=== PATIENT | male | born 1935 | race Caucasian/White ===

== ENCOUNTER 2018-02-27 03:45 | Inpatient (IN) ==
--- NOTE | 2018-02-27 04:00 | Emergency Department Note ---
Disposition Clinical Impression: Congestive heart failure, Community acquired pneumonia Disposition: Admitted As Inpatient Condition: Fair SOB HPI - General Stated Complaint: chest pain Time Seen by Provider: 02/27/18 03:45 Source: patient, EMS Mode of arrival: EMS Limitations: physical limitation (due to respiratory difficulties) Nursing Notes Reviewed: Yes Vital Signs Reviewed: Yes - History of Present Illness 82-year-old male who presents emergency room his having shortness of breath and chest pain patient states it has been going on for a couple of days by the ER physician who diagnosed him with bronchitis placed him on Levaquin since he c ould not take his GI upset so they switched him to another antibiotic he thinks his amoxicillin and then he says he is just not been getting any better he denies any blurred vision double vision loss vision diarrhea melena hematochezia hematemesis he says she breath cough congestion wheezing he has had no sputum production and feels that she could bring something up he denies rash or lesions other than the current case of shingles that he is dealing with he denies any numbness tingling he just has some weakness has not been able sleep because the shortness of breath all systems have been reviewed and otherwise negative Patient has chest pain worse with respiration eases with decreased movement patient states pains a 5 out of 10 non radiating Records reveal he was here on 1223 at that time was diagnosed with acute bronchitis patient has cardiac history is been resuscitated twice but states that this pain is worse with respiration and movement Pt Subjective Complaint: shortness of breath, chest pain Onset (ago): day(s) (3) Context: recent illness Severity: moderate, severe Consistency/Duration: constant, gradually worsening Improves with: bronchodilators Worsens with: exertion Known history of: COPD Associated symptoms: Reports: chest pain, pain with inspiration, cough, wheezing, sputum production. Denies: fever, orthopnea, lower extremity pain, polyuria, polydipsia, parasthesias, palpitations, hemoptysis, diaphoresis, nausea/vomiting, syncope, abdominal pain, sense of impending doom Treatment prior to arrival: oxygen, bronchodilator Cough present: Yes Cough Description: Involuntary, Bronchospastic Cough Frequency: Intermittent Sputum production: Yes Sputum Amount: Small Sputum Color: Cream - Related Data Home Medications Medication Instructions Recorded Confirmed RX: Aspirin 81 mg PO DAILY 08/08/15 02/27/18 RX: Folic Acid 1 mg PO DAILY 08/08/15 02/27/18 RX: Levothyroxine [Levothyroxine 137 mcg PO DAILY@0630 08/08/15 02/27/18 Sodium] RX: Metoprolol Succinate 200 mg PO DAILY 08/08/15 02/27/18 raNITIdine HCl [Zantac] 150 mg PO DAILY 08/08/15 02/27/18 Cetirizine HCl [Zyrtec] 10 mg PO DAILY 02/26/17 02/27/18 Cholecalciferol (Vitamin D3) 1,000 unit PO DAILY 02/26/17 02/27/18 [Vitamin D] RX: Docusate [Colace] 100 mg PO BID 02/26/17 02/27/18 RX: Hydralazine HCl 100 mg PO TID 02/26/17 02/27/18 RX: hydroCHLOROthiazide 25 mg PO DAILY 02/26/17 02/27/18 [Hydrochlorothiazide] amLODIPine [Norvasc] 5 mg PO DAILY 02/26/17 02/27/18 diazePAM [Valium] 5 mg PO TID 02/26/17 02/27/18 Gabapentin [Neurontin] 600 mg PO BID 11/01/17 02/27/18 Oxybutynin Chloride [Ditropan Xl] 15 mg PO DAILY 11/01/17 02/27/18 Psyllium Husk [Metamucil] 660 gm PO BID 11/01/17 02/27/18 Sennosides [Senna] 8.6 mg PO BID PRN 11/01/17 02/27/18 Timolol Maleate 0.5% 1 drop BOTH EYES DAILY 11/01/17 02/27/18 Previous Rx's Medication Instructions Recorded Amoxicillin/Clavulanate [Augmentin] 875 mg PO BIDWM #14 02/21/18 Promethazine/Dextromethorphan 5 ml PO Q4-6H PRN #120 syrup 02/21/18 [Promethazine-Dm Syrup] Allergies Allergy/AdvReac Type Severity Reaction Status Date / Time codeine Allergy See Verified 07/10/17 21:45 Comments sulfamethoxazole Allergy See Verified 07/10/17 21:45 [From Bactrim] Comments trimethoprim [From Bactrim] Allergy See Verified 08/08/15 12:18 Comments levofloxacin [From Levaquin] AdvReac Nausea Verified 02/27/18 05:11 All systems ED: reviewed and negative except as stated. Review of Systems: As Per HPI Constitutional: Reports: weakness. Denies: fever, chills Eyes: Denies: eye discharge ENT ED: Reports: congestion. Denies: ear pain, throat pain Cardiovascular: Reports: chest pain, dyspnea on exertion. Denies: palpitations Respiratory: Reports: cough, dyspnea, wheezes, sputum production Gastrointestinal: Denies: abdominal pain, nausea, vomiting Genitourinary: Denies: urgency, dysuria Musculoskeletal: Denies: back pain Integumentary: Denies: rash, abrasion Neurological: Denies: headache Psychiatric: Reports: anxiety Endocrine: Denies: fatigue Hematological/Lymphatic: Denies: easy bleeding Allergic/Immunologic: Denies: facial swelling Past Medical History - Past Medical History Attestation: Yes The following information was validated with the patient. Source: patient, old records reviewed, nursing notes reviewed Medical history: Reports: cancer, coronary artery disease, CVA, diabetes, hypertension, renal disease, other (ASCVD) Psychiatric history: Reports: no psych history - Social History Smoking Status: Former smoker Smokeless Tobacco Status: No Alcohol use: Reports: none Drug use: Reports: none Physical Exam - General Limitations: no limitations, physical limitation General appearance: alert, in no apparent distress, anxious - Head Head exam: atraumatic, normocephalic, normal inspection - Eye Eye exam: Present: normal appearance, PERRL, EOMI - ENT ENT exam: normal oropharynx, mucous membranes moist, TM's normal bilaterally, normal external ear exam, other (Wheezing appear to be more upper airway than it did to be down in the lung rocha) - Neck Neck exam: Present: normal inspection, full ROM, trachea midline - Chest Chest inspection: Present: normal inspection, symmetric chest wall rise - Respiratory Respiratory exam: Present: wheezes, accessory muscle use, prolonged expiratory phase - Cardiovascular Cardiovascular exam: Present: regular rate, normal rhythm, normal heart sounds - Abdominal Exam Abdominal exam: Present: soft, Non-Tender, normal bowel sounds. Absent: mass, pulsatile mass - Extremities Exam Extremities exam: Present: normal inspection, full ROM, normal capillary refill. Absent: tenderness, pedal edema, joint swelling, calf tenderness - Expanded Lower Extremity Exam Neurovascular/Tendon exam: Present: normal capillary refill, normal fine/light touch Gait: observed and normal - Back Exam Back exam: Present: normal inspection, full ROM. Absent: muscle spasm - Neurological Exam Neurological exam: Present: alert, oriented X3, CN II-XII intact, normal gait - Psychiatric Psychiatric exam: Present: normal affect, normal mood, anxious - Skin Skin exam: Present: warm, dry, intact, normal color, rash (Scab-like week lesions noted on the abdominal wall more prominent left than on the right) Course Course Narrative: Patient seen and examined patient was receiving aerosol treatment per started per EMS patient has multiple wheezing patient had chest x-ray labs are reviewed the EKG patient resting at this time patient received aspirin prior to arrival on arrival the patient is demanding to have some Valium Vital Signs Temperature 99.7 F H 02/27/18 03:57 Pulse Rate 50 02/27/18 03:57 Respiratory Rate 20 02/27/18 03:57 Blood Pressure 195/71 02/27/18 03:57 O2 Sat by Pulse Oximetry 99 02/27/18 03:57 Temperature 98.9 F 02/27/18 07:28 Pulse Rate 56 02/27/18 07:28 Respiratory Rate 14 02/27/18 07:28 Blood Pressure 146/65 02/27/18 07:28 O2 Sat by Pulse Oximetry 96 02/27/18 07:28 Oxygen Delivery Oxygen Delivery Nasal Cannula Shortness of Breath/Dyspnea - [facility] Narrative Medical decision making narrative: Chest pain STEMI non-STEMI - Differential Diagnosis Likely: acute exacerbation of chronic obstructive airways disease, congestive heart failure, pneumonia - Medical Records Medical records reviewed: Yes I reviewed the patient's medical records. - Lab Data Lab results reviewed: Yes I reviewed the patient's lab results. Result diagrams: 02/27/18 04:10 02/27/18 04:10 Lab Results 02/27/18 02/27/18 02/27/18 Range/Units 04:10 04:10 04:10 WBC 11.4 H D (4.3-11.1) K/mcL RBC 4.62 (4.19-5.50) M/mcL Hgb 14.2 (12.9-16.9) g/dL Hct 45.2 (37.5-50.1) % MCV 97.8 (83.0-100.0) fL MCH 30.7 (28.0-33.3) pg MCHC 31.4 L (31.6-35.5) g/dL RDW 14.6 H (11.5-14.5) % Plt Count 155 (140-400) K/mcL MPV 10.9 (9.4-12.4) fL Immature Gran % 0.4 (0-4) % Seg Neutrophils % 71.7 % Lymphocytes % 10.9 % Monocytes % 16.1 % Eosinophils % 0.5 % Basophils % 0.4 % Neutrophils # 8.2 (1.6-8.9) K/mcL Lymphocytes # 1.2 (0.6-4.6) K/mcL Monocytes # 1.8 H (0.0-1.3) K/mcL Eosinophils # 0.1 (0.0-0.6) K/mcL Basophils # 0.1 (0.0-0.2) K/mcL PT 12.7 H (9.4-12.1) Seconds INR 1.1 APTT 34.9 (26.0-36.0) Seconds Sodium 135 L (136-145) mEq/L Potassium 4.5 (3.5-5.1) mEq/L Chloride 98 (98-107) mEq/L Carbon Dioxide 32 H (23-29) mEq/L BUN 33 H (8-23) mg/dL Creatinine 1.93 H (0.70-1.30) mg/dL Est GFR ( Amer) 40 L (> 60) Est GFR (Non-Af Amer) 33 L (> 60) BUN/Creatinine Ratio 17 (6-26) Glucose 158 H (70-105) mg/dL Calculated Osmolality 291 (280-300) Lactic Acid (0.5-2.2) mmol/L Calcium 8.9 (8.6-10.3) mg/dL Phosphorus (2.7-4.5) mg/dL Magnesium (1.6-2.6) mg/dL Total Bilirubin 0.7 (0.3-1.0) mg/dL AST 16 (13-39) Units/L ALT 12 (7-52) Units/L Alkaline Phosphatase 35 (34-104) Units/L Troponin I < 0.03 (< 0.04) ng/mL B-Natriuretic Peptide (Less than 100) pg/mL Serum Total Protein 6.7 (6.4-8.9) g/dL Albumin 3.9 (3.5-5.7) g/dL Globulin 2.8 (2.4-3.5) g/dL Albumin/Globulin Ratio 1.4 (1.1-2.2) 02/27/18 02/27/18 02/27/18 Range/Units 04:10 04:10 04:10 WBC (4.3-11.1) K/mcL RBC (4.19-5.50) M/mcL Hgb (12.9-16.9) g/dL Hct (37.5-50.1) % MCV (83.0-100.0) fL MCH (28.0-33.3) pg MCHC (31.6-35.5) g/dL RDW (11.5-14.5) % Plt Count (140-400) K/mcL MPV (9.4-12.4) fL Immature Gran % (0-4) % Seg Neutrophils % % Lymphocytes % % Monocytes % % Eosinophils % % Basophils % % Neutrophils # (1.6-8.9) K/mcL Lymphocytes # (0.6-4.6) K/mcL Monocytes # (0.0-1.3) K/mcL Eosinophils # (0.0-0.6) K/mcL Basophils # (0.0-0.2) K/mcL PT (9.4-12.1) Seconds INR APTT (26.0-36.0) Seconds Sodium (136-145) mEq/L Potassium (3.5-5.1) mEq/L Chloride (98-107) mEq/L Carbon Dioxide (23-29) mEq/L BUN (8-23) mg/dL Creatinine (0.70-1.30) mg/dL Est GFR ( Amer) (> 60) Est GFR (Non-Af Amer) (> 60) BUN/Creatinine Ratio (6-26) Glucose (70-105) mg/dL Calculated Osmolality (280-300) Lactic Acid 1.4 (0.5-2.2) mmol/L Calcium (8.6-10.3) mg/dL Phosphorus 2.8 (2.7-4.5) mg/dL Magnesium 2.2 (1.6-2.6) mg/dL Total Bilirubin (0.3-1.0) mg/dL AST (13-39) Units/L ALT (7-52) Units/L Alkaline Phosphatase (34-104) Units/L Troponin I (< 0.04) ng/mL B-Natriuretic Peptide 626 H (Less than 100) pg/mL Serum Total Protein (6.4-8.9) g/dL Albumin (3.5-5.7) g/dL Globulin (2.4-3.5) g/dL Albumin/Globulin Ratio (1.1-2.2) - Radiology Data Radiology results reviewed: Yes I reviewed the patient's radiology results. - EKG Data EKG attestation: Yes I reviewed and interpreted this EKG. EKG results narrative: Paced rhythm rate 49 HI unable to calculate QRS 157 QT 444 axis -81 Critical Care Time Critical Care Time: No
[2018-02-27] MEDS ORDERED: Azithromycin 500 MG in D5% in Water 250 ML IVPB ONE (04:09)
[2018-02-27 04:17] LABS: Basophils # 0.1 K/mcL (0.0-0.2); Basophils % 0.4 %; Eosinophils # 0.1 K/mcL (0.0-0.6); Eosinophils % 0.5 %; Hematocrit 45.2 % (37.5-50.1); Hemoglobin 14.2 g/dL (12.9-16.9); Immature Granulocytes % 0.4 % (0-4); Lymphocytes # 1.2 K/mcL (0.6-4.6); Lymphocytes % 10.9 %; Mean Corpuscular HGB Conc 31.4 g/dL (31.6-35.5); Mean Corpuscular Hemoglobin 30.7 pg (28.0-33.3); Mean Corpuscular Volume 97.8 fL (83.0-100.0); Mean Platelet Volume 10.9 fL (9.4-12.4); Monocytes # 1.8 K/mcL (0.0-1.3); Monocytes % 16.1 %; Platelet Count 155 K/mcL (140-400); Red Blood Count 4.62 M/mcL (4.19-5.50); Red Cell Distribution Width 14.6 % (11.5-14.5); Segmented Neutrophils % 71.7 %
[2018-02-27] MEDS ORDERED: Bumetanide 1 MG/4 ML VIAL IVP ONE (04:19)
[2018-02-27 04:20] LABS: Neutrophils # 8.2 K/mcL (1.6-8.9)
[2018-02-27 04:22] LABS: INR 1.1; Prothrombin Time 12.7 Seconds (9.4-12.1)
[2018-02-27 04:25] LABS: Activated Partial Thrombo Time 34.9 Seconds (26.0-36.0)
[2018-02-27] MEDS ORDERED: diazePAM 5 MG TABLET PO ONE (04:26)
[2018-02-27 04:29] LABS: Alanine Aminotransferase 12 Units/L (7-52); Albumin 3.9 g/dL (3.5-5.7); Albumin/Globulin Ratio 1.4 (1.1-2.2); Alkaline Phosphatase 35 Units/L (34-104); Aspartate Amino Transferase 16 Units/L (13-39); BUN/Creatinine Ratio 17 (6-26); Bilirubin,Total 0.7 mg/dL (0.3-1.0); Blood Urea Nitrogen 33 mg/dL (8-23); Calcium 8.9 mg/dL (8.6-10.3); Carbon Dioxide 32 mEq/L (23-29); Chloride 98 mEq/L (98-107); Globulin 2.8 g/dL (2.4-3.5); Glucose 158 mg/dL (70-105); Osmolality,Calculated 291 (280-300); Potassium 4.5 mEq/L (3.5-5.1); Sodium 135 mEq/L (136-145); Total Protein 6.7 g/dL (6.4-8.9); eGFR For Non-African Americans 33 (> 60)
[2018-02-27 04:46] LABS: Troponin I < 0.03 ng/mL (< 0.04)
[2018-02-27 05:02] LABS: Magnesium 2.2 mg/dL (1.6-2.6); Phosphorous 2.8 mg/dL (2.7-4.5)
[2018-02-27] MEDS ORDERED: Sennosides 8.6 MG TABLET PO PRN (05:42)
[2018-02-27] MEDS ORDERED: Naloxone 0.4 MG/ML INJ IVP PRN (05:42)
[2018-02-27] MEDS ORDERED: PROMETHAZINE PO PRN (05:42)
[2018-02-27] MEDS ORDERED: DEXTROMETHORPHAN PO PRN (05:42)
[2018-02-27] MEDS ORDERED: [UNRECOGNIZED DRUG - OTHER] PO PRN (05:42)
[2018-02-27] MEDS: Famotidine 20 MG TABLET PO SCH (06:56)
[2018-02-27] MEDS: Bumetanide 1 MG/4 ML VIAL IVP SCH ×2 (08:40→17:02)
[2018-02-27] MEDS: Gabapentin 300 MG CAPSULE PO SCH ×3 (09:00→20:48)
[2018-02-27] MEDS: Aspirin 81 MG TAB.CHEW PO SCH (09:00)
[2018-02-27] MEDS: Metoprolol XL (24 HR) Succ 50 MG TAB.ER.24H PO SCH (09:00)
[2018-02-27] MEDS: hydroCHLOROthiazide 25 MG TABLET PO SCH (09:01)
[2018-02-27] MEDS: diazePAM 5 MG TABLET PO SCH ×3 (09:01→20:44)
[2018-02-27] MEDS: amLODIPine 5 MG TABLET PO SCH (09:01)
[2018-02-27] MEDS: Folic Acid 1 MG TABLET PO SCH (09:01)
[2018-02-27] MEDS: hydrALAZINE 25 MG TABLET PO SCH ×3 (09:01→20:43)
[2018-02-27] MEDS: Cholecalciferol (D-3) 1,000 UNIT TABLET PO SCH (09:01)
[2018-02-27] MEDS: Loratadine 10 MG TABLET PO SCH (09:01)
[2018-02-27] MEDS: Psyllium 1 PACKET POWD.PACK PO SCH ×2 (10:47→20:48)
--- NOTE | 2018-02-27 13:08 | Internal Med History&Physical ---
Date of Encounter: 02/27/18 Time of Encounter: 12:00 Assessment and Plan (1) Community acquired pneumonia Current visit: Yes Status: Acute Pending blood cultures, we will treat with Azithromycin and Rocephin. He will be treated with breathing treatments, as needed. He will continue supplemental oxygenation as needed and we will hopefully be able to wean this. I feel that his weakness is related to his illness but we will see how this goes and he may need placement in ECF or stay in a rehabilitation hospital as a swimming patient to increase his strengthening. This is because of his history of falls with illness. He apparently has a small complement of heart failure and I instructed him that this is probably because of his illness. We would watch and treat clinically. Qualifiers: Laterality: unspecified laterality Qualified Code(s): J18.9 - Pneumonia, unspecified organism (2) Congestive heart failure Current visit: Yes Status: Acute Mild related to above. We will try to have him seen as inpatient or outpatient by Dr. Marin, his collar feller, as available. He will be diuresed and monitored clinically with trying to avoid overdiuresis because of renal insufficiency. Qualifiers: Heart failure type: unspecified Heart failure chronicity: acute Qualified Code(s): I50.9 - Heart failure, unspecified (3) Chest wall pain Current visit: No Status: Acute This is in the center of diagnosis and will follow troponins, etc. (4) Gastroesophageal reflux disease Current visit: Yes Status: Acute He is on ranitidine for this and has a questionable ulcer history. Qualifiers: Esophagitis presence: esophagitis presence not specified Qualified Code(s): K21.9 - Gastro-esophageal reflux disease without esophagitis (5) Hypertension, essential Current visit: Yes Status: Acute Apparently stable. We will continue home regimen. (6) Solitary kidney Current visit: Yes Status: Acute He apparently has right solitary kidney after kidney cancer history. (7) Hypothyroidism Current visit: Yes Status: Acute We will check TSH given his diagnosis of heart failure. Qualifiers: Hypothyroidism type: unspecified Qualified Code(s): E03.9 - Hypothyroidism, unspecified (8) Chronic kidney disease Current visit: Yes Status: Acute Qualifiers: Chronic kidney disease stage: stage 3 (moderate) Qualified Code(s): N18.3 - Chronic kidney disease, stage 3 (moderate) (9) Cerebrovascular disease Current visit: Yes Status: Acute This is suspected critical, based on history. Will see if we can locate documentation on Thursday. May need vascular surgery referral. (10) Anxiety Current visit: Yes Status: Acute This is per his recent history and he is taking Valium 5 mg 3 times a day. I warned him about the addictive potential of this and the fact that we would like to have him address another type of medication with his psychiatrist, after he is improved, medically. (11) Constipation Current visit: Yes Status: Acute Per the patient, this is stable on senna and laxatives when necessary. Qualifiers: Constipation type: slow transit constipation Qualified Code(s): K59.01 - Slow transit constipation (12) Diabetes mellitus type 2, diet-controlled Current visit: Yes Status: Acute Per history, he is on diet controlled treatment only, no medication or insulin. He however has nephropathy and neuropathy. (13) Peripheral autonomic neuropathy due to diabetes mellitus Current visit: Yes Status: Acute Treated with Neurontin and apparently control. Primarily involving feet. Qualifiers: Diabetes mellitus type: type 2 Qualified Code(s): E11.43 - Type 2 diabetes mellitus with diabetic autonomic (poly)neuropathy Internal Medicine - H&P: HPI Chief complaint: Dyspnea Admitted From: Home History of present illness: Mr. Wagner is a 82 year old male with a 2 week history of not feeling well. He states that he has been progressively more short of breath and has had cough but no sputum production. The last couple of days, he has had yellow phlegm which is increasing in amount but still feels like he cannot get it out. He has occasional sweats and feels that he has been feverish but has not had chills. He has a sore throat the last couple of days but feels that he has been experiencing cough related to his sore throat. He has chest discomfort but on further questioning, the chest pain is always pleuritic and worse with cough. He has no history of coronary disease and has not had myocardial ischemia or heart attack, to his knowledge. He was treated for the cough with Levaquin but could not tolerate that and was then switched to another oral antibiotic. He states that the last couple of days before his transportation to the ER he was very weak. The weakness was progressive and caused him to fall a couple of times yesterday. He does not know of any focal deficits or speech changes, etc. He had no syncope or presyncope. Past medical history is significant for atrial pacemaker about 5 years ago after he was found to have an irregular heartbeat and after he " 8 times." He has no bypass or stent placement at that time. He was not treated for heart failure and has been in reasonable the good health since pacemaker placement. He is followed by Dr. Marin, his collar feller here, and has appointment with him on 03/03/2018. He had a recent rash on his right upper extremity which is now crusted. He was treated with antibiotic cream for same. This was felt to be shingles as it also involved his right upper abdomen and a few spots on his right forehead and sca lp. It was very itching and burned as well as had blisters. This was apparently about 3 weeks ago. He was a former smoker but has no known COPD. He stopped smoking over 20 years ago. He has a solitary right kidney and follows with lab animal technologist in [place] for same. He has bilateral carotid stenosis which is severe (of unknown severity) which was to have surgery by Dr. Crooks but this was delayed about 2 years ago for reasons not certain to patient. He has diabetes with neuropathy, nephropathy, but apparently not retinopathy. He was taken off his diabetic medications about 5 years ago and simply watches his diet for same. He has hypertension and takes several medications for same on a chronic, stable dose. He has remote peptic ulcer disease and was felt to have a recent "small ulcer" with switch from PPI to ranitidine. He has had several friends and family that have recently. For this reason, he sees a [place] psychiatrist by [facility] who has prescribed Valium for him. He takes no other antidepressants or anxiolytics. He has history of hypothyroidism and feels that he is stable on thyroid supplementation. Surgeries include pacemaker placement, left nephrectomy for cancer, prostate and left testicle removal for cancer and skin cancer in the form of melanoma on his right upper abdomen. He also had a laparoscopic cholecystectomy. All of these surgeries have been remote. He has a rare beer but does not otherwise drink alcohol or smoke marijuana or [address] drugs. He is and lives alone with the daughter that in [place] being his closest relative. He is a retired manager [employer]. Past Med Surg Social Fam HX - Past Medical History Medical history: cancer, coronary artery disease, CVA, diabetes, hypertension, renal disease, other (ASCVD) Additional medical history: Prostate cancer. Shingles Psychiatric history: no psych history, other (See history of present illness.) - Past Surgical History Additional surgical history: kidney removed, testicle removed - Social History Smoking Status: Former smoker Smokeless Tobacco Status: No Alcohol use: none Drug use: none - Family History Mother Living Status: Cause of : [place] Hx Family Cardiac Disorders: Yes Internal Medicine - H&P: Meds Aspirin 81 mg PO DAILY 08/08/15 [History] Folic Acid 1 mg PO DAILY 08/08/15 [History] Levothyroxine [Levothyroxine Sodium] 137 mcg PO DAILY@0630 08/08/15 [History] Metoprolol Succinate 200 mg PO DAILY 08/08/15 [History] raNITIdine HCl [Zantac] 150 mg PO DAILY 08/08/15 [History] Cetirizine HCl [Zyrtec] 10 mg PO DAILY 02/26/17 [History] Cholecalciferol (Vitamin D3) [Vitamin D] 1,000 unit PO DAILY 02/26/17 [History] Docusate [Colace] 100 mg PO BID 02/26/17 [History] Hydralazine HCl 100 mg PO TID 02/26/17 [History] amLODIPine [Norvasc] 5 mg PO DAILY 02/26/17 [History] diazePAM [Valium] 5 mg PO TID 02/26/17 [History] hydroCHLOROthiazide [Hydrochlorothiazide] 25 mg PO DAILY 02/26/17 [History] Gabapentin [Neurontin] 600 mg PO BID 11/01/17 [History] Oxybutynin Chloride [Ditropan Xl] 15 mg PO DAILY 11/01/17 [History] Psyllium Husk [Metamucil] 660 gm PO BID 11/01/17 [History] Sennosides [Senna] 8.6 mg PO BID PRN 11/01/17 [History] Timolol Maleate 0.5% 1 drop BOTH EYES DAILY 11/01/17 [History] Amoxicillin/Clavulanate [Augmentin] 875 mg PO BIDWM #14 02/21/18 [Rx] Promethazine/Dextromethorphan [Promethazine-Dm Syrup] 5 ml PO Q4-6H PRN #120 syrup 02/21/18 [Rx] Allergy/AdvReac Type Severity Reaction Status Date / Time codeine Allergy See Verified 07/10/17 21:45 Comments sulfamethoxazole Allergy See Verified 07/10/17 21:45 [From Bactrim] Comments trimethoprim [From Bactrim] Allergy See Verified 08/08/15 12:18 Comments levofloxacin [From Levaquin] AdvReac Nausea Verified 02/27/18 05:11 All Systems PM: The patient has glaucoma and he uses eyedrops "in a green bottle." He is not sure of the name. He has no cataracts. He has no teeth and his dentures are broken. He is mildly hard of hearing but does not wear hearing aids. Patient has no complaint of chest discomfort, dyspnea, orthopnea, breathing problems, palpitations, nausea or vomiting, constipation or diarrhea, other changes in bowel habits, heartburn, difficulty with urination, kidney problems or kidney stones, fevers chills or sweats, rash or itching, seizures, headache or lightheadedness, heat or cold intolerance, blood problems or anemia, or other new complaints, except as mentioned above. Review of systems is otherwise negative. - Constitutional Vitals: Temp Pulse Resp BP Pulse Ox 97.8 F 50 14 154/66 98 02/27/18 11:00 02/27/18 11:00 02/27/18 11:00 02/27/18 11:00 02/27/18 11:00 Exam: Examination: (Except as mentioned above): General: In no apparent distress, alert and oriented 3. Head: Atraumatic and normocephalic. Eyes: Extraocular muscles are intact, pupils equal round and reactive to light and accommodation. Sclerae anicteric. Ears: External ears are normal to inspection and hearing is grossly normal. Nose: Patent without lesion noted. Mouth: No intraoral lesions seen. Patient is edentulous. Neck: Supple with trachea midline. There is no thyromegaly or adenopathy and carotids are 2+ without bruit heard, but heart sounds are transmitted, bilaterally. Respiratory: No use of accessory muscles. Lungs are clear throughout. Normal airflow. Cardiovascular: Irregularly irregular with a low rate and no murmur appreciated. Abdomen: Bowel sounds are normal. No hepatosplenomegaly masses or tenderness. Obese and therefore difficult to palpate deeply. Extremities: No cyanosis clubbing or edema. Neurological: A and O 3. Cranial nerves II through XII are intact. No focal deficits and no abnormal movements or postures. Skin: Warm and non-diaphoretic with no lesions noted, with the exception as e xcoriations on right forearm extensor surface and minimal at distal right upper arm and a few lesions at right upper quadrant of the abdomen. Appropriate surgical scars.. Breasts, pelvic and rectal: Not examined. Internal Med - H&P Results - Labs CBC & Chem 7: 02/27/18 04:10 02/27/18 04:10 Labs: Short CBC 02/27/18 Range/Units 04:10 WBC 11.4 H D (4.3-11.1) K/mcL Hgb 14.2 (12.9-16.9) g/dL Hct 45.2 (37.5-50.1) % Plt Count 155 (140-400) K/mcL Neutrophils # 8.2 (1.6-8.9) K/mcL BMP 02/27/18 04:10 Sodium 135 L Potassium 4.5 Chloride 98 Carbon Dioxide 32 H BUN 33 H Creatinine 1.93 H Glucose 158 H Calcium 8.9 Cardiac Enzymes 02/27/18 02/27/18 Range/Units 04:10 10:10 Troponin I < 0.03 0.04 H* (< 0.04) ng/mL Liver Function 02/27/18 Range/Units 04:10 Total Bilirubin 0.7 (0.3-1.0) mg/dL AST 16 (13-39) Units/L ALT 12 (7-52) Units/L Alkaline Phosphatase 35 (34-104) Units/L Albumin 3.9 (3.5-5.7) g/dL - Impressions ITS Impressions Chest X-Ray 02/27/18 03:57 IMPRESSION: Pulmonary edema and left basilar atelectasis or pneumonia. The predominantly perihilar round densities are probably engorged central vessels. Pulmonary nodules are unlikely as these were not seen 6 days ago. D/ / Huang Holliday MD / Huang Holliday MD Interpreting Provider: Huang Holliday MD
[2018-02-27] MEDS: *HR* Enoxaparin 40 MG/0.4 ML SYRINGE SQ SCH (17:01)
[2018-02-27] MEDS: Albuterol 2.5 MG/3 ML NEBULIZER IH PRN (20:44)
[2018-02-28 04:51] LABS: Basophils % 0.3 %; Eosinophils % 0.1 %; Hematocrit 38.8 % (37.5-50.1); Hemoglobin 12.3 g/dL (12.9-16.9); Immature Granulocytes % 0.4 % (0-4); Lymphocytes # 1.1 K/mcL (0.6-4.6); Lymphocytes % 9.8 %; Mean Corpuscular HGB Conc 31.7 g/dL (31.6-35.5); Mean Corpuscular Hemoglobin 30.6 pg (28.0-33.3); Mean Corpuscular Volume 96.5 fL (83.0-100.0); Mean Platelet Volume 10.7 fL (9.4-12.4); Monocytes % 8.7 %; Neutrophils # 9.2 K/mcL (1.6-8.9); Platelet Count 162 K/mcL (140-400); Red Blood Count 4.02 M/mcL (4.19-5.50); Red Cell Distribution Width 14.3 % (11.5-14.5); Segmented Neutrophils % 80.7 %
[2018-02-28] MEDS: Famotidine 20 MG TABLET PO SCH (04:55)
[2018-02-28] MEDS: Azithromycin 500 MG in D5% in Water 250 ML IVPB SCH (04:55)
[2018-02-28] MEDS: Albuterol 2.5 MG/3 ML NEBULIZER IH PRN ×2 (04:55→09:27)
[2018-02-28 05:08] LABS: Calcium 8.4 mg/dL (8.6-10.3); Potassium 4.3 mEq/L (3.5-5.1)
[2018-02-28] MEDS: Psyllium 1 PACKET POWD.PACK PO SCH ×2 (07:34→20:28)
[2018-02-28] MEDS: Gabapentin 300 MG CAPSULE PO SCH ×2 (07:34→20:28)
[2018-02-28] MEDS: Folic Acid 1 MG TABLET PO SCH (08:24)
[2018-02-28] MEDS: diazePAM 5 MG TABLET PO SCH ×3 (08:25→20:27)
[2018-02-28] MEDS: Loratadine 10 MG TABLET PO SCH (08:25)
[2018-02-28] MEDS: amLODIPine 5 MG TABLET PO SCH (08:25)
[2018-02-28] MEDS: Cholecalciferol (D-3) 1,000 UNIT TABLET PO SCH (08:26)
[2018-02-28] MEDS: Aspirin 81 MG TAB.CHEW PO SCH (08:26)
[2018-02-28] MEDS: hydrALAZINE 25 MG TABLET PO SCH ×3 (08:27→20:27)
[2018-02-28] MEDS: hydroCHLOROthiazide 25 MG TABLET PO SCH (08:29)
[2018-02-28] MEDS: Metoprolol XL (24 HR) Succ 50 MG TAB.ER.24H PO SCH (08:32)
[2018-02-28] MEDS: Bumetanide 1 MG/4 ML VIAL IVP SCH ×2 (09:23→15:59)
[2018-02-28] MEDS: cefTRIAXone 1,000 MG in Water for inj. (sterile) 20 ML 10 ML IVP SCH (09:29)
--- NOTE | 2018-02-28 14:44 | Internal Med Progress Note ---
Date of Encounter: 02/28/18 Time of Encounter: 14:42 - Assessment and plan (1) Community acquired pneumonia Current Visit: Yes Status: Acute Assessment and plan: We will continue same antibiotics, azithromycin and Rocephin, will increase his breathing treatments to include DuoNeb. Expect he will need another day or 2 of IV antibiotics. Qualifiers: Laterality: unspecified laterality Qualified Code(s): J18.9 - Pneumonia, unspecified organism (2) Congestive heart failure Current Visit: Yes Status: Acute Assessment and plan: This is clinically stable but will recheck BMP tomorrow. Qualifiers: Heart failure type: unspecified Heart failure chronicity: acute Qualified Code(s): I50.9 - Heart failure, unspecified (3) Chest wall pain Current Visit: No Status: Acute Assessment and plan: I feel this is cough related and pleuritic associated with pneumonia. (4) Gastroesophageal reflux disease Current Visit: Yes Status: Acute Assessment and plan: Clinically stable. Qualifiers: Esophagitis presence: esophagitis presence not specified Qualified Code(s): K21.9 - Gastro-esophageal reflux disease without esophagitis (5) Hypertension, essential Current Visit: Yes Status: Acute Assessment and plan: Clinically stable. (6) Solitary kidney Current Visit: Yes Status: Acute Assessment and plan: We will recheck BMP, tomorrow. (7) Hypothyroidism Current Visit: Yes Status: Acute Assessment and plan: Clinically stable on current regimen. Qualifiers: Hypothyroidism type: unspecified Qualified Code(s): E03.9 - Hypothyroidism, unspecified (8) Chronic kidney disease Current Visit: Yes Status: Acute Qualifiers: Chronic kidney disease stage: stage 3 (moderate) Qualified Code(s): N18.3 - Chronic kidney disease, stage 3 (moderate) (9) Cerebrovascular disease Current Visit: Yes Status: Acute (10) Anxiety Current Visit: Yes Status: Acute (11) Constipation Current Visit: Yes Status: Acute Qualifiers: Constipation type: slow transit constipation Qualified Code(s): K59.01 - Slow transit constipation (12) Diabetes mellitus type 2, diet-controlled Current Visit: Yes Status: Acute Assessment and plan: Clinically stable. Will follow. 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 He still has tightness with exertion but notes this is related cough and dyspnea. He has no other complaints. He has low-grade fever. His cough is more frequent and he is producing more phlegm. Nursing notes that he sounds "tight." He has no other issues or complaints. Is concerned about his multiple visits coming up in the next few days as well as plans for care after this stay. I told him we would review with social service tomorrow. Patient has no complaint of chest discomfort, dyspnea, orthopnea, palpitations, nausea or vomiting, constipation or diarrhea, other changes in bowel habits, difficulty with urination, rash or itching, or other new complaints, except as mentioned above. Review of systems is otherwise negative. I discussed management of her care with nursing staff. - Constitutional Vitals: Temp Pulse Resp BP Pulse Ox 99.1 F 52 18 144/61 94 02/28/18 11:00 02/28/18 11:00 02/28/18 11:00 02/28/18 11:00 02/28/18 11:00 Exam: Examination: (Except as mentioned above): General: In no apparent distress. Alert and oriented 3. Nondiaphoretic. Patient is on oxygen at 2 L per nasal cannula. Head: Atraumatic and normocephalic. Respiratory: No use of accessory muscles. Lungs are remarkable for increased wheezing versus yesterday but seemingly has actual better airflow. No rales or signs of egophony, etc. Cardiovascular: Regular rate and rhythm without murmur appreciated. Abdomen: Bowel sounds are normal. No hepatosplenomegaly mass or tenderness appreciated. Obese and therefore difficult to palpate deeply.Patient is examined upright at bedside and this also limits exam. Extremities: No cyanosis clubbing or edema. Skin: Warm and non-diaphoretic with no new lesions noted. Internal Medicine: Result - Labs CBC & Chem 7: 02/28/18 04:45 02/28/18 04:45 Labs: Short CBC 02/28/18 Range/Units 04:45 WBC 11.4 H (4.3-11.1) K/mcL Hgb 12.3 L D (12.9-16.9) g/dL Hct 38.8 (37.5-50.1) % Plt Count 162 (140-400) K/mcL Neutrophils # 9.2 H (1.6-8.9) K/mcL BMP 02/28/18 04:45 Sodium 138 Potassium 4.3 Chloride 100 Carbon Dioxide 32 H BUN 40 H Creatinine 1.70 H Glucose 115 H Calcium 8.4 L Cardiac Enzymes 02/27/18 Range/Units 17:10 Troponin I 0.03 (< 0.04) ng/mL - ABG Interpretation ABG results: PT/INR, D-dimer PT 12.7 Seconds (9.4-12.1) H 02/27/18 04:10 Consult Discharge Plan - Plan Referrals: Stevo Mantilla, MECHANICAL HANDYMAN [Primary Care Provider] -
[2018-02-28] MEDS: Ipratropium/Albuterol Neb 3 ML IH SCH ×2 (15:55→20:28)
[2018-02-28] MEDS: *HR* Enoxaparin 40 MG/0.4 ML SYRINGE SQ SCH (15:58)
[2018-02-28] MEDS: Melatonin 3 MG TABLET PO SCH (20:27)
[2018-03-01] MEDS: Ipratropium/Albuterol Neb 3 ML IH SCH ×4 (03:34→22:00)
[2018-03-01] MEDS: Azithromycin 500 MG in D5% in Water 250 ML IVPB SCH (05:33)
[2018-03-01] MEDS: Famotidine 20 MG TABLET PO SCH (05:35)
[2018-03-01 06:08] LABS: Basophils % 0.4 %; Eosinophils # 0.1 K/mcL (0.0-0.6); Eosinophils % 0.8 %; Hematocrit 38.2 % (37.5-50.1); Hemoglobin 12.4 g/dL (12.9-16.9); Immature Granulocytes % 0.6 % (0-4); Lymphocytes # 1.2 K/mcL (0.6-4.6); Lymphocytes % 13.3 %; Mean Corpuscular HGB Conc 32.5 g/dL (31.6-35.5); Mean Corpuscular Volume 95.5 fL (83.0-100.0); Mean Platelet Volume 11.2 fL (9.4-12.4); Monocytes # 0.9 K/mcL (0.0-1.3); Monocytes % 9.9 %; Neutrophils # 6.8 K/mcL (1.6-8.9); Platelet Count 172 K/mcL (140-400); Red Cell Distribution Width 14.6 % (11.5-14.5)
[2018-03-01 06:27] LABS: Calcium 8.5 mg/dL (8.6-10.3); Potassium 3.9 mEq/L (3.5-5.1)
[2018-03-01] MEDS: Loratadine 10 MG TABLET PO SCH (08:57)
[2018-03-01] MEDS: Folic Acid 1 MG TABLET PO SCH (08:57)
[2018-03-01] MEDS: Aspirin 81 MG TAB.CHEW PO SCH (08:57)
[2018-03-01] MEDS: diazePAM 5 MG TABLET PO SCH ×3 (08:57→20:11)
[2018-03-01] MEDS: Bumetanide 1 MG/4 ML VIAL IVP SCH ×2 (08:58→19:12)
[2018-03-01] MEDS: amLODIPine 5 MG TABLET PO SCH (08:58)
[2018-03-01] MEDS: Cholecalciferol (D-3) 1,000 UNIT TABLET PO SCH (08:58)
[2018-03-01] MEDS: hydroCHLOROthiazide 25 MG TABLET PO SCH (08:58)
[2018-03-01] MEDS: Psyllium 1 PACKET POWD.PACK PO SCH ×2 (09:01→20:14)
[2018-03-01] MEDS: hydrALAZINE 25 MG TABLET PO SCH ×3 (09:01→20:13)
[2018-03-01] MEDS: cefTRIAXone 1,000 MG in Water for inj. (sterile) 20 ML 10 ML IVP SCH (09:02)
[2018-03-01] MEDS: Gabapentin 300 MG CAPSULE PO SCH ×2 (09:02→20:11)
[2018-03-01] MEDS: Metoprolol XL (24 HR) Succ 50 MG TAB.ER.24H PO SCH (09:03)
--- NOTE | 2018-03-01 13:40 | Internal Med Progress Note ---
Date of Encounter: 03/01/18 Time of Encounter: 11:10 - Assessment and plan (1) Community acquired pneumonia Current Visit: Yes Status: Acute Assessment and plan: We will continue IV antibiotics and breathing treatments for another day, at least. We will arrange for home going nursing care and follow-up, as he stabilizes. Qualifiers: Laterality: unspecified laterality Qualified Code(s): J18.9 - Pneumonia, unspecified organism (2) Congestive heart failure Current Visit: Yes Status: Acute Assessment and plan: He is due for cardiology follow-up today or Thursday but this is not possible as his doweler is not here, today. Qualifiers: Heart failure type: unspecified Heart failure chronicity: acute Qualified Code(s): I50.9 - Heart failure, unspecified (3) Chest wall pain Current Visit: No Status: Inactive Assessment and plan: Improving. Seems to have been related to his cough. (4) Gastroesophageal reflux disease Current Visit: Yes Status: Acute Assessment and plan: Clinically stable without recent symptoms. Qualifiers: Esophagitis presence: esophagitis presence not specified Qualified Code(s): K21.9 - Gastro-esophageal reflux disease without esophagitis (5) Hypertension, essential Current Visit: Yes Status: Acute Assessment and plan: Clinically stable and will follow. (6) Solitary kidney Current Visit: Yes Status: Acute Assessment and plan: He is tach of follow-up BMP today. (7) Hypothyroidism Current Visit: Yes Status: Acute Qualifiers: Hypothyroidism type: unspecified Qualified Code(s): E03.9 - Hypothyroidism, unspecified (8) Chronic kidney disease Current Visit: Yes Status: Acute Qualifiers: Chronic kidney disease stage: stage 3 (moderate) Qualified Code(s): N18.3 - Chronic kidney disease, stage 3 (moderate) (9) Cerebrovascular disease Current Visit: Yes Status: Acute (10) Anxiety Current Visit: Yes Status: Acute Assessment and plan: The patient seems to do well and slept well last night. For this reason, we will continue as planned. 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 He feels that his breathing is better. He is concerned about his ability to go home alone. He is relieved to hear that discharge planning will include home health, if possible. He is feeling relatively well today and is very pleased that he slept so well with melatonin, last night. Discussed with community mental health social worker and he is not a rehabilitation or swelling candidate, here. He will either need to go home or to a mcc. He has less chest pain and less cough. He has no other acute complaints except wonders what we can do with the rash on his forearm. I again tried to re-assure him that we would follow. We will also apply moisturizing lotion, only at this time. Patient has no complaint of chest discomfort, dyspnea, orthopnea, palpitations, nausea or vomiting, constipation or diarrhea, other changes in bowel habits, difficulty with urination, rash or itching, or other new complaints, except as mentioned above. Review of systems is otherwise negative. I discussed management of her care with nursing staff. - Constitutional Vitals: Temp Pulse Resp BP Pulse Ox 99.5 F 50 16 147/68 97 03/01/18 12:00 03/01/18 12:00 03/01/18 12:00 03/01/18 12:00 03/01/18 12:00 Exam: Examination: (Except as mentioned above): General: In no apparent distress. Alert and oriented 3. Nondiaphoretic. Head: Atraumatic and normocephalic. Respiratory: No use of accessory muscles. Lungs have minimal wheezing, diffusely.. Nearly normal airflow. Cardiovascular: Regular rate and rhythm without murmur appreciated. Abdomen: Bowel sounds are normal. No hepatosplenomegaly mass or tenderness appreciated. Obese and therefore difficult to palpate deeply. Extremities: No cyanosis clubbing or edema. Skin: Warm and non-diaphoretic with no new lesions noted. Internal Medicine: Result - Labs CBC & Chem 7: 03/01/18 05:45 03/01/18 05:45 Labs: Short CBC 03/01/18 Range/Units 05:45 WBC 9.0 (4.3-11.1) K/mcL Hgb 12.4 L (12.9-16.9) g/dL Hct 38.2 (37.5-50.1) % Plt Count 172 (140-400) K/mcL Neutrophils # 6.8 (1.6-8.9) K/mcL BMP 03/01/18 05:45 Sodium 137 Potassium 3.9 Chloride 96 L Carbon Dioxide 34 H BUN 37 H Creatinine 1.74 H Glucose 136 H Calcium 8.5 L - ABG Interpretation ABG results: PT/INR, D-dimer PT 12.7 Seconds (9.4-12.1) H 02/27/18 04:10 Consult Discharge Plan - Plan Referrals: Stevo Mantilla, UPHOLSTERY TECHNICIAN [Primary Care Provider] -
[2018-03-01] MEDS: *HR* Enoxaparin 40 MG/0.4 ML SYRINGE SQ SCH (19:11)
[2018-03-01] MEDS: Melatonin 3 MG TABLET PO SCH (20:11)
[2018-03-02] MEDS: Ipratropium/Albuterol Neb 3 ML IH SCH ×4 (04:27→22:22)
[2018-03-02] MEDS: Azithromycin 500 MG in D5% in Water 250 ML IVPB SCH (06:26)
[2018-03-02] MEDS: Famotidine 20 MG TABLET PO SCH (06:26)
[2018-03-02] MEDS: Cholecalciferol (D-3) 1,000 UNIT TABLET PO SCH (09:38)
[2018-03-02] MEDS: amLODIPine 5 MG TABLET PO SCH (09:38)
[2018-03-02] MEDS: Folic Acid 1 MG TABLET PO SCH (09:39)
[2018-03-02] MEDS: Psyllium 1 PACKET POWD.PACK PO SCH ×2 (09:39→22:20)
[2018-03-02] MEDS: Gabapentin 300 MG CAPSULE PO SCH ×2 (09:39→22:20)
[2018-03-02] MEDS: Aspirin 81 MG TAB.CHEW PO SCH (09:39)
[2018-03-02] MEDS: Loratadine 10 MG TABLET PO SCH (09:39)
[2018-03-02] MEDS: hydrALAZINE 25 MG TABLET PO SCH ×3 (09:39→22:18)
[2018-03-02] MEDS: hydroCHLOROthiazide 25 MG TABLET PO SCH (09:39)
[2018-03-02] MEDS: Bumetanide 1 MG/4 ML VIAL IVP SCH ×2 (09:40→18:28)
[2018-03-02] MEDS: Metoprolol XL (24 HR) Succ 50 MG TAB.ER.24H PO SCH (09:41)
[2018-03-02] MEDS: cefTRIAXone 1,000 MG in Water for inj. (sterile) 20 ML 10 ML IVP SCH (09:41)
[2018-03-02] MEDS: diazePAM 5 MG TABLET PO SCH ×3 (09:42→22:20)
--- NOTE | 2018-03-02 11:52 | Internal Med Progress Note ---
Date of Encounter: 03/02/18 Time of Encounter: 11:52 - Assessment and plan (1) Community acquired pneumonia Current Visit: Yes Status: Acute Assessment and plan: He is improving and should be able to return home, tomorrow. We will evaluate and consider home health, follow-ups as planned. Qualifiers: Laterality: unspecified laterality Qualified Code(s): J18.9 - Pneumonia, unspecified organism (2) Congestive heart failure Current Visit: Yes Status: Acute Assessment and plan: Clinically stable without current signs or symptoms. Qualifiers: Heart failure type: unspecified Heart failure chronicity: acute Qualified Code(s): I50.9 - Heart failure, unspecified (3) Chest wall pain Current Visit: No Status: Inactive Assessment and plan: I feel this is related to his pneumonia so will follow. (4) Gastroesophageal reflux disease Current Visit: Yes Status: Acute Qualifiers: Esophagitis presence: esophagitis presence not specified Qualified Code(s): K21.9 - Gastro-esophageal reflux disease without esophagitis (5) Hypertension, essential Current Visit: Yes Status: Acute Assessment and plan: Clinically stable. (6) Solitary kidney Current Visit: Yes Status: Acute (7) Hypothyroidism Current Visit: Yes Status: Acute Qualifiers: Hypothyroidism type: unspecified Qualified Code(s): E03.9 - Hypothyroidism, unspecified (8) Chronic kidney disease Current Visit: Yes Status: Acute Qualifiers: Chronic kidney disease stage: stage 3 (moderate) Qualified Code(s): N18.3 - Chronic kidney disease, stage 3 (moderate) (9) Cerebrovascular disease Current Visit: Yes Status: Acute (10) Anxiety Current Visit: Yes Status: Acute Assessment and plan: I think this intermittently gives patient his symptoms or exacerbates his respiratory symptoms. (11) Constipation Current Visit: Yes Status: Acute Assessment and plan: Currently moving well. Qualifiers: Constipation type: slow transit constipation Qualified Code(s): K59.01 - Slow transit constipation (12) Diabetes mellitus type 2, diet-controlled Current Visit: Yes Status: Acute Assessment and plan: Clinically stable. 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 When he is able to cough phlegm out, he states that the discomfort resolves. He has no exertional or other component. His bowels moving well and we discussed discharge planning tomorrow or the next day. He has no other intermittent complaints. Patient has no complaint of chest discomfort, dyspnea, orthopnea, palpitations, nausea or vomiting, constipation or diarrhea, other changes in bowel habits, difficulty with urination, rash or itching, or other new complaints, except as mentioned above. Review of systems is otherwise negative. I discussed management of her care with nursing staff. - Constitutional Vitals: Temp Pulse Resp BP Pulse Ox 97.4 F L 50 16 156/78 94 03/02/18 08:39 03/02/18 08:39 03/02/18 08:39 03/02/18 08:39 03/02/18 08:39 Exam: Examination: (Except as mentioned above): General: In no apparent distress. Alert and oriented 3. Nondiaphoretic. Head: Atraumatic and normocephalic. Respiratory: No use of accessory muscles. Lungs are almost totally clear throughou with rare wheeze. . Normal airflow. Cardiovascular: Regular rate and rhythm without murmur appreciated. Abdomen: Bowel sounds are normal. No hepatosplenomegaly mass or tenderness appreciated. Obese and therefore difficult to palpate deeply. Patient is examined upright in chair and this also limits exam. Extremities: No cyanosis clubbing or edema. Skin: Warm and non-diaphoretic with no new lesions noted. Internal Medicine: Result - Labs CBC & Chem 7: 03/01/18 05:45 03/01/18 05:45 - ABG Interpretation ABG results: PT/INR, D-dimer PT 12.7 Seconds (9.4-12.1) H 02/27/18 04:10 Consult Discharge Plan - Plan Referrals: Stevo Mantilla, CHOPPER OPERATOR [Primary Care Provider] -
[2018-03-02] MEDS: *HR* Enoxaparin 40 MG/0.4 ML SYRINGE SQ SCH (14:58)
[2018-03-02] MEDS: Melatonin 3 MG TABLET PO SCH (22:20)
[2018-03-03] MEDS: Ipratropium/Albuterol Neb 3 ML IH SCH ×3 (04:41→11:08)
[2018-03-03] MEDS: Famotidine 20 MG TABLET PO SCH (05:50)
[2018-03-03 05:59] LABS: Basophils # 0.1 K/mcL (0.0-0.2); Basophils % 0.7 %; Eosinophils # 0.2 K/mcL (0.0-0.6); Eosinophils % 2.2 %; Hematocrit 43.1 % (37.5-50.1); Immature Granulocytes % 0.6 % (0-4); Lymphocytes # 1.4 K/mcL (0.6-4.6); Lymphocytes % 19.5 %; Mean Corpuscular HGB Conc 32.5 g/dL (31.6-35.5); Mean Corpuscular Hemoglobin 30.7 pg (28.0-33.3); Mean Corpuscular Volume 94.5 fL (83.0-100.0); Mean Platelet Volume 10.8 fL (9.4-12.4); Monocytes # 0.8 K/mcL (0.0-1.3); Monocytes % 11.1 %; Neutrophils # 4.7 K/mcL (1.6-8.9); Platelet Count 208 K/mcL (140-400); Red Blood Count 4.56 M/mcL (4.19-5.50); Red Cell Distribution Width 13.9 % (11.5-14.5); Segmented Neutrophils % 65.9 %
[2018-03-03 06:15] LABS: Calcium 9.6 mg/dL (8.6-10.3); Potassium 3.8 mEq/L (3.5-5.1)
[2018-03-03] MEDS ORDERED: Azithromycin 250 MG TABLET PO SCH (07:00)
--- NOTE | 2018-03-03 09:12 | Electrocardiograph Report ---
[place] [id number] Test Date: 2018-02-27 Pat Name: Srini Wagner Department: 2000 Room: 115 Gender: M Multiple Resaw Operator: KATELIN : 1935 Requested By: Liz Palma Order Number: [id number] Reading MD: Oskar Booth Measurements Intervals [place] Rate: 49 P: [place]: 0 QRS: -81 QRSD: 157 T: 87 QT: 444 QTc: 415 Interpretive Statements ELECTRONIC VENTRICULAR PACEMAKER ABNORMAL RHYTHM ECG Electronically Signed On 03-03-2018 9:10:17 EST by Oskar Booth
[2018-03-03] MEDS: Psyllium 1 PACKET POWD.PACK PO SCH (09:31)
[2018-03-03] MEDS: Gabapentin 300 MG CAPSULE PO SCH (09:31)
[2018-03-03] MEDS: Bumetanide 1 MG/4 ML VIAL IVP SCH (09:32)
[2018-03-03] MEDS: diazePAM 5 MG TABLET PO SCH ×2 (09:33→14:25)
[2018-03-03] MEDS: Folic Acid 1 MG TABLET PO SCH (09:33)
[2018-03-03] MEDS: Aspirin 81 MG TAB.CHEW PO SCH (09:33)
[2018-03-03] MEDS: hydrALAZINE 25 MG TABLET PO SCH ×2 (09:33→14:25)
[2018-03-03] MEDS: Cholecalciferol (D-3) 1,000 UNIT TABLET PO SCH (09:33)
[2018-03-03] MEDS: cefTRIAXone 1,000 MG in Water for inj. (sterile) 20 ML 10 ML IVP SCH (09:34)
[2018-03-03] MEDS: amLODIPine 5 MG TABLET PO SCH (09:34)
[2018-03-03] MEDS: hydroCHLOROthiazide 25 MG TABLET PO SCH (09:34)
[2018-03-03] MEDS: Loratadine 10 MG TABLET PO SCH (09:34)
[2018-03-03] MEDS: Metoprolol XL (24 HR) Succ 50 MG TAB.ER.24H PO SCH (09:34)
--- NOTE | 2018-03-03 11:20 | Discharge Summary ---
Orders not resulted at time of discharge: Pending orders 02/27/18 04:10 Culture,Blood [] Stat Date of Encounter: 03/03/18 Time of Encounter: 11:18 - Discharge Diagnosis (1) Community acquired pneumonia Priority: Primary Status: Acute Comments: Patient was admitted through the emergency department after presenting with complaints of increase in dyspnea over the past 2 weeks and increasing malaise. Patient has a long history of CHF, although he states that he has stopped smoking over 20 years ago. On admission patient had a productive cough with thick yellow sputum. Patient was treated with cortical steroids and started on antibiotic and has improved over the last several days. Patient currently remains afebrile. Patient states he continues to have moderate dyspnea on exertion. Afebrile. Patient will be discharged to home with prescription for Keflex over the next 7 days. Patient is to follow-up with his PCP in one week. Qualifiers: Laterality: unspecified laterality Qualified Code(s): J18.9 - Pneumonia, unspecified organism (2) Congestive heart failure Priority: Secondary Status: Chronic Comments: No acute issues during stay of facility. Patient continues to have complaints of dyspnea on exertion. Denies orthopnea. Patient was treated for pneumonia and will be discharged with prescription for Keflex. Patient is continue with current home medications and follow-up with PCP Qualifiers: Heart failure type: unspecified Heart failure chronicity: acute Qualified Code(s): I50.9 - Heart failure, unspecified (3) Hypertension, essential Priority: Secondary Status: Chronic Comments: Vital signs remained stable during his stay of facility. Patient is to be discharged home with orders to continue his home medications. Continued follow- up with PCP for further management (4) Chronic kidney disease Priority: Secondary Status: Chronic Comments: No acute issues. Patient most recent creatinine was 1.65. Patient to discharge home with current medications and follow-up with PCP for further management Qualifiers: Chronic kidney disease stage: stage 3 (moderate) Qualified Code(s): N18.3 - Chronic kidney disease, stage 3 (moderate) Hospital course: Mr. Wagner is a 82 year old male , who was admitted to this facility after presented to emergency department with complaints of increasing dyspnea and malaise over the past 2 weeks. Initial chest x-ray was suggestive of possible pneumonia and patient was admitted for IV therapy and further treatment with nebulized treatments. Patient progressed over the last several days and has remained afebrile. Patient had a cough upon admission currently shows no productive cough. Lungs are clear throughout upper rocha and diminished bases. Patient will be discharged to home with a prescription for Keflex to continue for the next 7 days and is recommended to follow up with his PCP on one week. Discharge discussed with: patient Time spent discussing smoking cessation with patient: 3 to 10 minutes - Time Spent with Patient Total time spent providing and/or coordinating discharge services: Less than 30 minutes - Discharge Medications Home Medications: Aspirin 81 mg PO DAILY 08/08/15 [History] Folic Acid 1 mg PO DAILY 08/08/15 [History] Levothyroxine [Levothyroxine Sodium] 137 mcg PO DAILY@0630 08/08/15 [History] Metoprolol Succinate 200 mg PO DAILY 08/08/15 [History] raNITIdine HCl [Zantac] 150 mg PO DAILY 08/08/15 [History] Cetirizine HCl [Zyrtec] 10 mg PO DAILY 02/26/17 [History] Cholecalciferol (Vitamin D3) [Vitamin D] 1,000 unit PO DAILY 02/26/17 [History] Docusate [Colace] 100 mg PO BID 02/26/17 [History] Hydralazine HCl 100 mg PO TID 02/26/17 [History] amLODIPine [Norvasc] 5 mg PO DAILY 02/26/17 [History] diazePAM [Valium] 5 mg PO TID 02/26/17 [History] hydroCHLOROthiazide [Hydrochlorothiazide] 25 mg PO DAILY 02/26/17 [History] Gabapentin [Neurontin] 600 mg PO BID 11/01/17 [History] Oxybutynin Chloride [Ditropan Xl] 15 mg PO DAILY 11/01/17 [History] Psyllium Husk [Metamucil] 660 gm PO BID 11/01/17 [History] Sennosides [Senna] 8.6 mg PO BID PRN 11/01/17 [History] Timolol Maleate 0.5% 1 drop BOTH EYES DAILY 11/01/17 [History] Amoxicillin/Clavulanate [Augmentin] 875 mg PO BIDWM #14 02/21/18 [Rx] Promethazine/Dextromethorphan [Promethazine-Dm Syrup] 5 ml PO Q4-6H PRN #120 syrup 02/21/18 [Rx] Allergies/Adverse Reactions: Allergy/AdvReac Type Severity Reaction Status Date / Time codeine Allergy See Verified 07/10/17 21:45 Comments sulfamethoxazole Allergy See Verified 07/10/17 21:45 [From Bactrim] Comments trimethoprim [From Bactrim] Allergy See Verified 08/08/15 12:18 Comments levofloxacin [From Levaquin] AdvReac Nausea Verified 02/27/18 05:11 Date of admission: 02/27/18 13:00 Primary care physician: Stevo Mantilla CNP Consults: 02/27/18 05:42 Consult to Cardiac Rehabilitation-Phase1 [CONS] Routine Comment: Reason for Consult: heart failure Call Completed: Yes Consult to Nurse Navigator [CONS] Routine Comment: Consult to Nurse Navigator [CONS] Routine Comment: Discharging clinician: Diomedes Spencer - Constitutional Vitals: Temp Pulse Resp BP Pulse Ox 98.0 F 66 16 145/68 93 03/03/18 07:00 03/03/18 09:27 03/03/18 07:00 03/03/18 07:00 03/03/18 07:00 General appearance: Present: A&O X 3, pleasant - Head Head exam: Present: atraumatic, normocephalic - Eye Eye exam: Present: PERRL, conjuntiva pink, sclera anicteric Pupils: Present: PERRL - Neck Neck exam general surgery: Present: supple, trachea midline. Absent: lymphadenopathy - Respiratory Respiratory exam: Present: CTAB. Absent: accessory muscle use, rales, rhonchi, wheezes Additional comments: Lungs are clear throughout upper rocha with diminished basilar rocha. Respiratory effort appears relaxed. - Cardiovascular Cardiovascular exam: Present: RRR, +S1, +S2. Absent: diastolic murmur, gallop, rubs, systolic murmur - GI/Abdominal GI/Abdominal exam: Present: normal bowel sounds, soft, no peritoneal signs. Absent: distended, tenderness - Extremities Exam Extremities exam: Present: warm, radial pulses palpable and symmetrical. Absent: calf tenderness, cyanotic, pedal edema - Neurological Exam Neurological exam: Present: CN II-XII intact, oriented X3, no focal deficits. Absent: pronater drift, facial droop, speech deficit - Skin Skin exam: Present: dry, intact - Patient Status Disposition: Home Health Service Condition: Fair Functional capacity at discharge: uses cane/walker Overall status at discharge: patient is progressing back to baseline - Discharge Instructions Follow Up With: Stevo Mantilla [employer]SEMBLER [employer] [Primary Care Provider] - Forms: ED Satisfaction Letter - Diet and Activity Activity: ambulate only with your walker, increase activity as tolerated Diet: low fat, low cholesterol, low salt diet, regular diet
--- NOTE | 2018-03-03 11:29 | Physician Discharge Referral ---
Home Health/Hosp Referral Info Transfer to: Home Health Provider in Charge Post Discharge: PCP - Diagnosis (1) Community acquired pneumonia Priority: Primary Status: Acute (2) Congestive heart failure Priority: Secondary Status: Chronic (3) Hypertension, essential Priority: Secondary Status: Chronic (4) Chronic kidney disease Priority: Secondary Status: Chronic - Respiratory Orders Oxygen / L per min (2 LPM NC prn) Smoking Cessation: Smoking cessation has been advised. For more information, call the [place] Tobacco Quit Line at 6-276-IPMW-NOW. - Diet/Nutrition Diet/Nutrition Orders: Regular, No Added Salt (BRANDON), Renal, Cardiac - Activity Activity Orders: Up ad joann, Walker - Services Needed Following services are medically necessary services: Nursing, Home Health Aide - Transfer Medications Home Medications: Aspirin 81 mg PO DAILY 08/08/15 [History] Folic Acid 1 mg PO DAILY 08/08/15 [History] Levothyroxine [Levothyroxine Sodium] 137 mcg PO DAILY@0630 08/08/15 [History] Metoprolol Succinate 200 mg PO DAILY 08/08/15 [History] raNITIdine HCl [Zantac] 150 mg PO DAILY 08/08/15 [History] Cetirizine HCl [Zyrtec] 10 mg PO DAILY 02/26/17 [History] Cholecalciferol (Vitamin D3) [Vitamin D] 1,000 unit PO DAILY 02/26/17 [History] Docusate [Colace] 100 mg PO BID 02/26/17 [History] Hydralazine HCl 100 mg PO TID 02/26/17 [History] amLODIPine [Norvasc] 5 mg PO DAILY 02/26/17 [History] diazePAM [Valium] 5 mg PO TID 02/26/17 [History] hydroCHLOROthiazide [Hydrochlorothiazide] 25 mg PO DAILY 02/26/17 [History] Gabapentin [Neurontin] 600 mg PO BID 11/01/17 [History] Oxybutynin Chloride [Ditropan Xl] 15 mg PO DAILY 11/01/17 [History] Psyllium Husk [Metamucil] 660 gm PO BID 11/01/17 [History] Sennosides [Senna] 8.6 mg PO BID PRN 11/01/17 [History] Timolol Maleate 0.5% 1 drop BOTH EYES DAILY 11/01/17 [History] Amoxicillin/Clavulanate [Augmentin] 875 mg PO BIDWM #14 02/21/18 [Rx] Promethazine/Dextromethorphan [Promethazine-Dm Syrup] 5 ml PO Q4-6H PRN #120 syrup 02/21/18 [Rx] Allergies/Adverse Reactions: Allergy/AdvReac Type Severity Reaction Status Date / Time codeine Allergy See Verified 07/10/17 21:45 Comments sulfamethoxazole Allergy See Verified 07/10/17 21:45 [From Bactrim] Comments trimethoprim [From Bactrim] Allergy See Verified 08/08/15 12:18 Comments levofloxacin [From Levaquin] AdvReac Nausea Verified 02/27/18 05:11 Certification: Further, I certify that my clinical findings support that this patient is homebound (i.e. absences from home require considerable and taxing effort and are for medical reasons or mandaen services or infrequently or short duration when for other reasons) because: Homebound Reason: Leaving home requires considerable and taxing effort due to c ondition Attestation: My signature below is to certify that this patient is under my care and that I, or nurse practitioner, or a physician's roofer assistant working with me, has a [id number] encounter with this patient.
[2018-03-03 11:55] VITALS: BP 102/62
== END 2018-03-03 16:30 | disposition home health service (06) | DRG 139 ==
LOC: INPGRE 03:45 → EMEROOGRE 03:45 → INPGRE 05:34

== ENCOUNTER 2020-08-30 13:31 | Observation (INO) ==
[2020-08-30] MEDS ORDERED: Furosemide 40 MG/4 ML VIAL IVP ONE (13:47)
[2020-08-30] MEDS: Ipratropium/Albuterol Neb 3 ML IH ONE (13:53)
[2020-08-30 14:26] LABS: Basophils # 0.1 K/mcL (0.0-0.2); Basophils % 0.7 %; Eosinophils # 0.2 K/mcL (0.0-0.6); Eosinophils % 2.2 %; Hemoglobin 13.6 g/dL (12.9-16.9); Immature Granulocytes % 0.4 % (0-4); Lymphocytes # 0.9 K/mcL (0.6-4.6); Lymphocytes % 12.8 %; Mean Corpuscular HGB Conc 30.9 g/dL (31.6-35.5); Mean Corpuscular Volume 96.9 fL (83.0-100.0); Mean Platelet Volume 11.2 fL (9.4-12.4); Monocytes # 0.8 K/mcL (0.0-1.3); Monocytes % 11.2 %; Neutrophils # 4.9 K/mcL (1.6-8.9); Platelet Count 165 K/mcL (140-400); Red Blood Count 4.54 M/mcL (4.19-5.50); Red Cell Distribution Width 14.6 % (11.5-14.5); Segmented Neutrophils % 72.7 %; White Blood Count 6.7 K/mcL (4.3-11.1)
[2020-08-30 14:33] LABS: INR 1.1; Prothrombin Time 12.2 Seconds (9.4-12.1)
[2020-08-30 14:36] LABS: Activated Partial Thrombo Time 31.3 Seconds (26.0-36.0)
[2020-08-30 14:46] LABS: Albumin 3.9 g/dL (3.5-5.7); Albumin/Globulin Ratio 1.2 (1.1-2.2); Bilirubin,Total 0.8 mg/dL (0.3-1.0); Calcium 9.4 mg/dL (8.6-10.3); Globulin 3.3 g/dL (2.4-3.5); Phosphorous 3.3 mg/dL (2.7-4.5); Potassium 4.8 mEq/L (3.5-5.1); Total Protein 7.2 g/dL (6.4-8.9)
[2020-08-30] MEDS ORDERED: Isovue-370 500 ML BOTTLE IVP ONE (14:52)
[2020-08-30] MEDS ORDERED: cloNIDine HCL 0.1 MG TABLET PO ONE (16:50)
[2020-08-30] MEDS ORDERED: *HR* LORazepam 2 MG/ML VIAL IVP ONE (16:50)
[2020-08-30] MEDS ORDERED: amLODIPine 5 MG TABLET PO ONE (17:38)
[2020-08-30] MEDS ORDERED: Mag Hydrox/Al Hydrox/Simeth 30 ML UDC PO PRN (18:22)
[2020-08-30] MEDS ORDERED: Ondansetron 4 MG/2 ML VIAL IVP PRN (18:22)
[2020-08-30] MEDS ORDERED: Naloxone 0.4 MG/ML INJ IVP PRN (18:22)
[2020-08-30] MEDS ORDERED: Ondansetron ODT 4 MG TAB.RAPDIS SL PRN (18:22)
[2020-08-30] MEDS ORDERED: Acetaminophen 325 MG TABLET PO PRN (18:22)
[2020-08-30] MEDS ORDERED: MOM Conc 10 ML UD.LIQ PO PRN (18:22)
[2020-08-30] MEDS ORDERED: Perflutren Lipid Microsphere 1.3 ML in 0.9 % Sodium Chloride 8.7 ML IVP PRN (18:28)
[2020-08-30] MEDS ORDERED: hydrALAZINE 10 MG TABLET PO PRN (18:28)
[2020-08-30] MEDS ORDERED: Saline Nasal Spray 44 ML BOTTLE NS PRN (18:31)
[2020-08-30] MEDS ORDERED: Gabapentin 300 MG CAPSULE PO PRN (18:54)
[2020-08-30] MEDS: *HR* LORazepam 1 MG TABLET PO PRN (20:59)
[2020-08-30] MEDS: Furosemide 40 MG/4 ML VIAL IVP SCH (20:59)
[2020-08-30] MEDS: Melatonin 3 MG TABLET PO PRN (21:00)
[2020-08-30] MEDS: *HR* HYDROcodone/Acet 5/325 mg TABLET PO PRN (21:00)
[2020-08-30] MEDS: hydrALAZINE 25 MG TABLET PO SCH (23:08)
[2020-08-30] MEDS: hydrALAZINE 10 MG TABLET PO PRN (23:09)
[2020-08-31] MEDS ORDERED: ACETAMINOPHEN 650 MG PO SCH
[2020-08-31 00:46] LABS: Bilirubin,Urine Negative (Negative); Blood,Urine Negative (Negative); Clarity,Urine Clear (Clear); Color,Urine Yellow (Yellow); Glucose,Urine (UA) Normal (Normal); Ketones,Urine Negative (Negative); Leukocyte Esterase,Urine Negative (Negative); Nitrite,Urine Negative (Negative); Protein,Urine Negative (Neg-Trace); Urobilinogen,Urine Normal (Normal)
[2020-08-31] MEDS: hydrALAZINE 25 MG TABLET PO SCH ×3 (05:34→17:46)
[2020-08-31] MEDS: *HR* Enoxaparin 40 MG/0.4 ML SYRINGE SQ SCH (05:36)
[2020-08-31] MEDS: *HR* LORazepam 1 MG TABLET PO PRN ×2 (06:48→21:35)
[2020-08-31] MEDS: *HR* HYDROcodone/Acet 5/325 mg TABLET PO PRN ×2 (06:48→21:34)
[2020-08-31] MEDS: hydrALAZINE 10 MG TABLET PO PRN (06:49)
[2020-08-31 07:53] LABS: Hematocrit 43.1 % (37.5-50.1); Hemoglobin 13.4 g/dL (12.9-16.9); Mean Corpuscular HGB Conc 31.1 g/dL (31.6-35.5); Mean Corpuscular Hemoglobin 29.5 pg (28.0-33.3); Mean Corpuscular Volume 94.9 fL (83.0-100.0); Mean Platelet Volume 11.2 fL (9.4-12.4); Platelet Count 163 K/mcL (140-400); Red Blood Count 4.54 M/mcL (4.19-5.50); Red Cell Distribution Width 14.4 % (11.5-14.5); White Blood Count 7.5 K/mcL (4.3-11.1)
[2020-08-31 08:23] LABS: Albumin 3.8 g/dL (3.5-5.7); Albumin/Globulin Ratio 1.2 (1.1-2.2); Bilirubin,Total 0.6 mg/dL (0.3-1.0); Calcium 9.4 mg/dL (8.6-10.3); Globulin 3.1 g/dL (2.4-3.5); Magnesium 1.8 mg/dL (1.6-2.6); Potassium 4.3 mEq/L (3.5-5.1); Total Protein 6.9 g/dL (6.4-8.9)
[2020-08-31] MEDS ORDERED: Metoprolol XL (24 HR) Succ 50 MG TAB.ER.24H PO SCH (09:00)
[2020-08-31 09:25] LABS: Thyroid Stimulating Hormone 1.836 mcIU/mL (0.340-5.600)
[2020-08-31] MEDS: amLODIPine 5 MG TABLET PO SCH (09:53)
[2020-08-31] MEDS: Aspirin 81 MG TAB.CHEW PO SCH (09:54)
[2020-08-31] MEDS: NIFEdipine XL (24 HR) 60 MG TAB.ER.24 PO SCH (09:54)
[2020-08-31] MEDS: Isosorbide MONOnitrate (24 HR) 60 MG TAB.ER.24H PO SCH (09:54)
[2020-08-31] MEDS: Loratadine 10 MG TABLET PO SCH (09:55)
[2020-08-31] MEDS: polyethylene glycoL 3350 17 GM POWD.PACK PO SCH (09:55)
[2020-08-31] MEDS: Furosemide 40 MG/4 ML VIAL IVP SCH (09:56)
[2020-08-31] MEDS: cloNIDine HCL 0.1 MG TABLET PO SCH ×3 (11:26→21:35)
[2020-08-31 14:01] LABS: Estimated Average Glucose 117 mg/dl; Hemoglobin A1C 5.7 %
[2020-08-31] MEDS: Melatonin 3 MG TABLET PO PRN (21:35)
[2020-09-01] MEDS: hydrALAZINE 25 MG TABLET PO SCH ×3 (00:03→12:33)
[2020-09-01 05:50] LABS: Hematocrit 37.2 % (37.5-50.1); Hemoglobin 11.9 g/dL (12.9-16.9); Mean Corpuscular Hemoglobin 30.4 pg (28.0-33.3); Mean Corpuscular Volume 95.1 fL (83.0-100.0); Mean Platelet Volume 11.4 fL (9.4-12.4); Platelet Count 153 K/mcL (140-400); Red Blood Count 3.91 M/mcL (4.19-5.50); Red Cell Distribution Width 14.4 % (11.5-14.5); White Blood Count 6.2 K/mcL (4.3-11.1)
[2020-09-01] MEDS: *HR* HYDROcodone/Acet 5/325 mg TABLET PO PRN (06:03)
[2020-09-01] MEDS: *HR* Enoxaparin 40 MG/0.4 ML SYRINGE SQ SCH (06:03)
[2020-09-01] MEDS: *HR* LORazepam 1 MG TABLET PO PRN (06:03)
[2020-09-01 06:07] LABS: Calcium 8.9 mg/dL (8.6-10.3); Potassium 3.7 mEq/L (3.5-5.1)
[2020-09-01 07:10] VITALS: BP 130/70
[2020-09-01] MEDS ORDERED: Furosemide 40 MG TABLET PO SCH (09:00)
[2020-09-01] MEDS: polyethylene glycoL 3350 17 GM POWD.PACK PO SCH (09:57)
[2020-09-01] MEDS: Loratadine 10 MG TABLET PO SCH (09:57)
[2020-09-01] MEDS: Isosorbide MONOnitrate (24 HR) 60 MG TAB.ER.24H PO SCH (09:57)
[2020-09-01] MEDS: cloNIDine HCL 0.1 MG TABLET PO SCH (09:57)
[2020-09-01] MEDS: amLODIPine 5 MG TABLET PO SCH (09:57)
[2020-09-01] MEDS: NIFEdipine XL (24 HR) 60 MG TAB.ER.24 PO SCH (09:57)
[2020-09-01] MEDS: Aspirin 81 MG TAB.CHEW PO SCH (09:57)
[2020-09-01] MEDS ORDERED: Ipratropium/Albuterol Neb 3 ML ONE (11:24)
[2020-09-01] MEDS ORDERED: Ipratropium/Albuterol Neb 3 ML IH PRN (11:25)
[2020-09-01] MEDS: Ipratropium/Albuterol Neb 3 ML IH ONE (11:34)
== END 2020-09-01 16:46 | disposition home or self-care (01) ==
LOC: EMEROOGRE 13:31 → INPGRE 13:31
PROVIDERS: ADMIT Family Medicine; ATTEND Family Medicine